=== PATIENT | male | born 1985 | race Caucasian/White ===

== ENCOUNTER 2016-12-09 15:06 | Emergency (ER) | payer OTHER ==
[~2016-12-09] VITALS: Ht 172.7 cm; Wt 66.8 kg
[2016-12-09 15:08] VITALS: BP 118/71; PULSE 97; RESP 18; O2SAT 94
--- NOTE | 2016-12-09 16:31 | ED.REPORT ---
HPI-General Illness Date of Service Dec 09, 2016 ED Provider: Dr. Moise Rigoberto is a otherwise healthy 31-year-old male has a chief complaint a laceration to his left eye. Patient states he sustained a laceration before presentation while sparring when he was struck in the head. Denies loss of consciousness, headache, neck pain or other symptoms. He has a rubin gloves competition next Sunday as and is concerned because he will not be allowed to have stitches at that time. Nursing Notes Stated Complaint: LEFT EYEBROW LACERATION Chief Complaint: Laceration Nursing Notes Reviewed: Yes Allergies: Coded Allergies: No Known Allergies (Unverified , 12/09/16) General Time Seen by MD: 15:27 Chief Complaint Laceration Hx Obtained From: Patient Arrived By: Walk-in Sudden in Onset?: Yes Onset Occurred: Just prior to arrival Symptom Duration: Since onset Caused by: Accidental Context: Occurred at: Sports injury Location: : Face Quality: Painful Severity: Current: Mild Past Medical History Past Medical History None reported Past Surgical History None reported Ambulatory Status Independent Review of Systems Negative unless stated otherwise in history of present illness. Full Review of Systems Musculoskeletal: Denies: Neck pain Neurologic: Denies: Change LOC, Headache Complete sys rev & neg: except as marked. Physical Exam General: Well appearing, well developed, well nourished, no acute distress. Head: Atraumatic, normocephalic. Eyes: No scleral icterus or injection. No discharge. Vision grossly intact. ENT: Voice clear, hearing grossly intact. Skin: Warm and dry. Shallow 3 cm laceration across the left eyebrow. Well visualized, no foreign bodies. Neurological: Grossly nonfocal. Psychological: alert and oriented. Speech appropriate, linear and logical. Behavior appropriate. Vital Signs Vital Signs Date Time Temp Pulse Resp B/P Pulse Ox O2 Delivery O2 Flow Rate FiO2 12/09/16 15:08 36.8 97 18 118/71 94 Initial VS: Reviewed, Vital signs normal Procedures Laceration Management Laceration Management: 2cm laceration Proximal half repaired by dermabond by MEHREEN Forrest Lateral half repaired by plain gut suture Time: 17:51 Procedure Performed by: ED physician, Allied health pract Consent / Setup / Site Prep: Informed consent provided, Consent from patient , Time-out performed, Hand hygiene observed, Stand sterile technique Wound Length: 2 cm Local Anesthesia: Lidocaine 1% Wound Preparation: Betadine Irrigation: Copious Foreign Body Explore / Removal: Explored for foreign body Repair Skin: ___ O (5), Dermabond # Sutures - Skin: 4 (plain gut) Suture Technique: Simple Post-Procedure / Complications: Antibiotic oint applied, Dressing applied, No complications, Condition improved, Tolerated procedure well, Patient stable Re-Eval/Medical Decision Source of Hx: Old records Time of Eval: 17:00 Re-Evaluation/Progress Note: Pt rechecked. Evaluated laceration, determined dermabond or sutures will be acceptable. Time of Eval: 17:38 Re-Evaluation/Progress Note: Pt rechecked. Pt is wanting a suture. Removed half of dermabond. Time of Eval: 17:53 Re-Evaluation/Progress Note: Pt rechecked. Procedure performed. Counseled Regarding: Diagnosis, Need for follow-up, When/why to return to ED Discharge & Departure Primary Impression: Laceration Disposition: Home Discharge Condition All VS Reviewed: Yes Condition: Stable Patient Instructions: Laceration (ED), Suture Care (ED) Additional Instructions: Evaluation for laceration over the left eye ED. History and physical is reassuring is no other injury. Wound was cleaned, closed with Dermabond and sutures and dressed. Keep the wound covered and dry for the next 5 days. After 5 days you can pat the area with a wet soapy washcloth up to twice a day. Do not use ointment, as this will dissolve the Dermabond. Be vigilant for signs of infection including increasing redness, swelling, with the appearance of pus. Referrals: [facility] (PCP) [facility] Jonh Attestation Portions of this note were transcribed by Katerina Montano I, Dr. Moise personally performed the history, physical exam and medical decision-making; I reviewed and confirmed the accuracy of the information in the transcribed note. Signed by: Jonh Martel, 12/09/16 and 2015. copies to: [facility] Vasyl Forrest PA-C Dec 09, 2016 16:31 KATERINA MONTANO Dec 09, 2016 18:00
[2016-12-09] MEDS ORDERED: Lidocaine 1% 50 mL Inj NERVEBLOCK ONE (17:20)
== END 2016-12-09 18:29 | disposition home or self-care (01) ==
LOC: SED 15:06
DX: S01.112A Laceration without foreign body of left eyelid and periocular area, initial encounter (principal); W50.0XXA Accidental hit or strike by another person, initial encounter; Y93.71 Activity, boxing; Y92.9 Unspecified place or not applicable